=== PATIENT | male | born 1970 ===

== ENCOUNTER 2017-11-18 05:49 | Emergency (ER) | payer BC ==
[2017-11-18 05:49] VITALS: BMI 34.4
[2017-11-18] MEDS ORDERED: Lidocaine 1%/Epinephrine 1:100000 30 ml vial IJ STA (06:30)
--- NOTE | 2017-11-18 06:32 | ED PDOC ---
Arrival/HPI - General Time Seen by Provider: 11/18/17 05:52 - History of Present Illness Narrative History of Present Illness (Text): 11/18/17 06:31 47 yo male, presents with left upper leg abscess. h/o of abscess in past. reports symptom x 2 days Past Medical History - Infectious Disease Hx of Infectious Diseases: None - Cardiac Hx Cardiac Disorders: Yes Hx Hypertension: Yes - Pulmonary Hx Respiratory Disorders: No - Neurological Hx Neurological Disorder: No - HEENT Hx HEENT Disorder: No - Renal Hx Renal Disorder: No - Endocrine/Metabolic Hx Endocrine Disorders: No - Hematological/Oncological Hx Blood Disorders: No - Integumentary Hx Dermatological Disorder: Yes Other/Comment: HX: "CYST ON TAIL BONE". HX: CYST ON FOREHEAD/SCALP( UPPER LEFT EYELID NEAR EYEBROW) - Musculoskeletal/Rheumatological Hx Musculoskeletal Disorders: Yes Hx Fractures: Yes (FX. RIGHT PATELLA PLAYING FOOTBALL A TEEN.) - Gastrointestinal Hx Gastrointestinal Disorders: No - Genitourinary/Gynecological Hx Genitourinary Disorders: No - Psychiatric Hx Psychophysiologic Disorder: No Hx Substance Use: No - Surgical History Hx Orthopedic Surgery: Yes (RECONSTRUCTION SURGERY RIGHT KNEE A TEEN-FX. PATELLA) - Anesthesia Hx Anesthesia: Yes Hx Anesthesia Reactions: No Hx Malignant Hyperthermia: No Family/Social History - Physician Review Nursing Documentation Reviewed: Yes Family/Social History: Unknown Family HX Smoking Status: Never Smoked Hx Alcohol Use: Yes Hx Substance Use: No Allergies/Home Meds Allergies/Adverse Reactions: Allergies No Known Allergies Allergy (Verified 11/18/17 06:44) Home Medications: Home Meds Medication Instructions Recorded Confirmed Unobtainable 11/18/17 11/18/17 Review of Systems - Review of Systems Constitutional: Normal Eyes: Normal ENT: Normal Respiratory: Normal Cardiovascular: Normal Gastrointestinal: Normal Genitourinary Male: Normal Musculoskeletal: Normal Skin: Abscess Neurological: Normal Endocrine: Normal Hemo/Lymphatic: Normal Psychiatric: Normal Physical Exam Vital Signs Temp Pulse Resp BP Pulse Ox 11/18/17 06:40 98.2 F 76 18 134/80 98 Temperature: Afebrile Blood Pressure: Normal Pulse: Regular Respiratory Rate: Normal Appearance: Positive for: Well-Appearing, Non-Toxic, Comfortable Pain Distress: None Mental Status: Positive for: Alert and Oriented X 3 - Systems Exam Head: Present: Atraumatic, Normocephalic Pupils: Present: PERRL Extroacular Muscles: Present: EOMI Conjunctiva: Present: Normal Mouth: Present: Moist Mucous Membranes Neck: Present: Normal Range of Motion Respiratory/Chest: Present: Clear to Auscultation, Good Air Exchange. No: Respiratory Distress, Accessory Muscle Use Cardiovascular: Present: Regular Rate and Rhythm, Normal S1, S2. No: Murmurs Abdomen: Present: Normal Bowel Sounds. No: Tenderness, Distention, Peritoneal Signs Back: Present: Normal Inspection Upper Extremity: Present: Normal Inspection. No: Cyanosis, Edema Lower Extremity: Present: Other ((+)left upper leg abscess). No: Edema Neurological: Present: GCS=15, CN II-XII Intact, Speech Normal Skin: Present: Warm, Dry, Normal Color. No: Rashes Psychiatric: Present: Alert, Oriented x 3, Normal Insight, Normal Concentration Medical Decision Making - Medication Orders Current Medication Orders: Discontinued Medications Lidocaine/Epinephrine (Lidocaine 1%/Epinephrine 1:101088 30 Ml) 30 ml IJ STAT STA Stop: 11/18/17 06:31 Last Admin: 11/18/17 07:07 Dose: 30 ml Procedures - Incision and Drainage Site: lef t leg Blade Size: 11 Progress: i and d, cavity flusehd, packing placed, 2 day f/u Disposition/Present on Arrival - Present on Arrival Any Indicators Present on Arrival: No History of DVT/PE: No History of Uncontrolled Diabetes: No Urinary Catheter: No History Surgical Site Infection Following: None - Disposition Have Diagnosis and Disposition been Completed?: Yes Diagnosis: Abscess Disposition: HOME/ ROUTINE Disposition Time: 07:00 Condition: STABLE Discharge Instructions (ExitCare): Abscess (ED) Additional Instructions: return to er with worsening symptoms or concerns. return in 2 days for wound check or f/u with your doctor. Referrals: [facility] [Outside] - Follow up with primary [facility] [place] - Follow up with primary Meera Polanco MD [Staff Provider] - Follow up with primary Forms: [employer] (Slovak), WORK NOTE
[2017-11-18 06:43] VITALS: BP 134/80; PULSE 76; RESP 18; TEMP 98.2; O2SAT 98
== END 2017-11-18 07:13 | disposition home or self-care (01) ==
LOC: ED 05:49
DX: L02.416 Cutaneous abscess of left lower limb (principal); I10 Essential (primary) hypertension